=== PATIENT | female | born 1970 | race Caucasian/White ===

== ENCOUNTER 2021-02-21 16:30 | Emergency (ER) | payer MEDICAID ==
[~2021-02-21] VITALS: Ht 167.6 cm; Wt 66.0 kg
[2021-02-21] MEDS ORDERED: HYDROCODONE/ACETAMINOPHEN 5/325MG TABLET PO ONE (16:45)
[2021-02-21 17:51] VITALS: BP 137/81
[2021-02-21] MEDS ORDERED: HYDR-4346 MT ×2 (17:52→18:35)
[2021-02-21] MEDS ORDERED: IBUP-2029 MT (17:52)
[2021-02-21] MEDS ORDERED: LIDOCAINE HCL/EPINEPHRINE 1%-EPI 1:100,000 20 ML VIAL INFIL ONE (18:00)
[2021-02-21] MEDS ORDERED: LIDOCAINE HCL/PF 1% 10 MG/ML 5ML VIAL INFIL ONE (18:00)
[2021-02-21] MEDS ORDERED: IBUP-2028 MT (18:35)
== END 2021-02-21 18:49 | disposition home or self-care (01) ==
LOC: ER 17:12
DX: S52.611A Displaced fracture of right ulna styloid process, initial encounter for closed fracture (principal); S52.591A Other fractures of lower end of right radius, initial encounter for closed fracture; M85.80 Other specified disorders of bone density and structure, unspecified site; W01.0XXA Fall on same level from slipping, tripping and stumbling without subsequent striking against object, initial encounter; Y92.9 Unspecified place or not applicable
CPT/HCPCS: 29125; 73090; 73110; 73130; 99284; J3490; Z7610